=== PATIENT | male | born 1935 | race Asian ===

== ENCOUNTER → 2016-09-04 | Outpatient (CLI) | payer MEDICARE, OTHER ==
--- NOTE | 2016-09-04 13:39 | RADRPT ---
PROCEDURE: XR Chest. CLINICAL INDICATION: Cough. TECHNIQUE: Single frontal view. COMPARISON: 01/17/2009. FINDINGS: The lungs are clear. The heart size is normal. There is no pleural effusion. There is no pneumothorax. IMPRESSION: 1. Normal chest radiograph. RPTAT: QQ .Yuval Graves MD, MD Date Time Electronically viewed and signed by .Yuval Graves MD, on 09/04/2016 13:39 .R/
== END | disposition home or self-care (01) ==
LOC: RAD 12:46
PROVIDERS: ATTEND Internal Medicine
DX: R05 Cough (principal)
CPT/HCPCS: 71010

== ENCOUNTER 2018-05-15 10:35 | Emergency (ER) | END 2018-05-15 13:33 | disposition home or self-care (01) ==

== ENCOUNTER 2019-03-08 06:46 | Day surgery (SDC) | payer MEDICARE, OTHER ==
[2019-03-08] VITALS (7 sets, daily range): BP systolic 134–165; BP diastolic 74–96; PULSE 70–77; RESP 12–22; Ht 167.6 cm; Wt 58.7 kg
[~2019-03-08] VITALS: Ht 167.6 cm; Wt 58.7 kg
[~2019-03-08 06:46] MED LIST: ACET325T33 PO; ATOR40TA68 PO; CELE200C PO; CEPH-443 PO; DICL100G37 TOP; FER325 PO; FINA5TAB4 PO; GLIP5TAB13 PO; LEVO25TA PO; METF500T24 PO; METO-429 PO; PANT40TA3 PO; TRHC5025 PO
[2019-03-08] MEDS ORDERED: CEFAZOLIN 1 GM INJ ONE (06:51)
[2019-03-08] MEDS ORDERED: CARBACHOL 0.01% 1.5 ML OPH INJ ONE (06:51)
[2019-03-08] MEDS ORDERED: DEXAMETHASONE 4 MG/ML 1 ML INJ ONE (06:51)
[2019-03-08] MEDS ORDERED: LIDOCAINE 4% (MPF) 5 ML INJ ONE (06:51)
[2019-03-08] MEDS ORDERED: GENTAMICIN 80 MG INJ ONE (06:51)
[2019-03-08] MEDS ORDERED: DICLOFENAC 0.1% 2.5 ML OPH OPER SCH (08:00)
[2019-03-08] MEDS ORDERED: TROPICAMIDE 1% 15 ML OPH OPER SCH (08:00)
[2019-03-08] MEDS ORDERED: SOD CHLORIDE 0.9% 1,000 ML IV SCH (08:00)
[2019-03-08] MEDS ORDERED: CYCLOPENTOLATE/PHENYLEPH 2 ML OPH OPER SCH (08:00)
[2019-03-08] MEDS ORDERED: MOXIFLOXACIN 0.5% 3 ML OPH OPER SCH (08:00)
[2019-03-08] MEDS ORDERED: ONDANSETRON 4 MG INJ IV PRN (08:30)
[2019-03-08] MEDS ORDERED: CEFAZOLIN 1 GM INJ INJ ONE (08:30)
[2019-03-08] MEDS ORDERED: FENTAnyl 50 MCG/ML VIAL IV PRN (08:30)
[2019-03-08] MEDS ORDERED: CARBACHOL 0.01% 1.5 ML OPH INJ IO ONE (08:30)
[2019-03-08] MEDS ORDERED: LIDOCAINE 4% (MPF) 5 ML INJ INJ ONE (08:30)
[2019-03-08] MEDS ORDERED: HYDROmorphONE 1 MG/5 ML IV SYRINGE IV PRN ×2 (08:30)
[2019-03-08] MEDS ORDERED: hydrALAzine 20 MG INJ IV PRN (08:30)
[2019-03-08] MEDS ORDERED: LABETALOL HCL 20MG INJ IV PRN (08:30)
[2019-03-08] MEDS ORDERED: EPHEDrine 25 MG/5 ML SYG IV PRN (08:30)
[2019-03-08] MEDS ORDERED: DEXAMETHASONE 4 MG/ML 1 ML INJ INJ ONE (08:30)
[2019-03-08] MEDS ORDERED: MIDAZOLAM 1 MG/ML 2 ML INJ ONE (08:50)
[2019-03-08] MEDS ORDERED: LIDOCAINE 2% (SDV) 5 ML INJ ONE (08:52)
[2019-03-08] MEDS ORDERED: PROPOFOL 20 ML ONE (08:52)
[2019-03-08] MEDS ORDERED: FENTAnyl 50 MCG/ML VIAL ONE (08:53)
== END 2019-03-08 10:25 | disposition home or self-care (01) ==
LOC: SDS 06:46
PROVIDERS: ATTEND Ophthalmology
DX: H25.12 Age-related nuclear cataract, left eye (principal); E11.9 Type 2 diabetes mellitus without complications; I10 Essential (primary) hypertension; E03.9 Hypothyroidism, unspecified; M06.9 Rheumatoid arthritis, unspecified; Z79.84 Long term (current) use of oral hypoglycemic drugs
CPT/HCPCS: 66984; 82962; J0690; J1100; J1580; J2250; J3010; V2632